=== PATIENT | male | born 1940 | race Caucasian/White ===

== ENCOUNTER 2016-06-23 09:04 | Outpatient (CLI) | payer MEDICARE ==
[~2016-06-23] VITALS: Ht 167.6 cm; Wt 59.1 kg
[~2016-06-23 09:04] MED LIST: ALBU18HF2 INH; AMLO10TA2 PO; ATOR40TA64 PO; BUDE10.2 PO; FINA5TAB42 PO; GUAI1TBM15 PO; LEVA1.2513 AEROSOL; LIDOCAINE 1% (10mg/ml) 2ml SDV INJ ONE; LISI-625 PO; LR 1,000 ML IV PRN; MONT10TA25 PO; PHEN355L3 PO; TIOT18CA3 ORAL INH
[2016-06-23 09:24] VITALS: Ht 167.6 cm; Wt 59.1 kg
[2016-06-23 09:26] VITALS: BP 125/59; PULSE 73; RESP 15; TEMP 98.2; O2SAT 95
[2016-06-23] MEDS ORDERED: NEOMYCIN/POLYM/BACITR OINT PACKET TOP ONE (09:32)
[2016-06-23] MEDS ORDERED: ISOSULFAN BLUE 5ml INJECTION SQ ONE (09:32)
[2016-06-23] MEDS ORDERED: BUPIVACAINE 0.25%/EPI 1:200,000 30ml SDV INJ ONE ×2 (09:32→14:06)
--- NOTE | 2016-06-23 11:46 | ANESPREOP ---
Anesthesia Record Date and Time DATE: 06/23/16 TIME: 11:43 Proposed Surgical Procedure wide local excision of melanoma upper back NPO since: 2329 Allergies: Coded Allergies: No Known Allergies (Unverified , 06/23/16) Ht/Wt/BMI Height: 5 ' 6.00 " Weight: 59.100 kg BMI: 21.0 kg/m2 Vital Signs Date Time Temp Pulse Resp B/P Pulse Ox O2 Delivery O2 Flow Rate FiO2 06/23/16 09:26 98.2 73 15 125/59 95 Room Air Medications Inpatient Medications Current Medications Medications (Trade) Dose Ordered Sig/Cale Start Time Stop Time Status Last Admin Dose Admin Lactated Ringer's (Lactated Ringers) 1,000 ml @ 50 mls/hr Q20H PRN 06/23/16 07:00 06/23/16 10:05 50 MLS/HR Albuterol Sulfate (Ventolin HFA 90 mcg/actuation) 18 Gm Hfa.aer.ad, 2 PUFF INH TID, (Reported) Last Taken: on 06/22/16 1900 Amlodipine Besylate (Amlodipine Besylate) 10 Mg Tablet, 10 MG PO HS, (Reported) Last Taken: on 06/22/161999 Atorvastatin Calcium (Atorvastatin Calcium) 40 Mg Tablet, 40 MG PO HS, (Reported) Last Taken: on 06/22/161999 Budesonide/Formoterol Fumarate (Symbicort 160- 4.5 Mcg Inhaler) 10.2 Gm Hfa.aer.ad, 2 PUFF PO BID, (Reported) Last Taken: on 06/23/16 0800 Finasteride (Finasteride) 5 Mg Tablet, 5 MG PO HS, (Reported) Last Taken: on 06/22/161999 Guaifenesin/Dextromethorphan (Mucinex Dm ER 1, 200-60 mg Tab) 1 Each Tbmp.12hr, 1 TAB PO BID, (Reported) Last Taken: on 06/22/161999 Levalbuterol HCl (Levalbuterol HCl) 1.25 Mg/3 Ml Vial.neb, 1 DOSE AEROSOL TID, (Reported) Last Taken: on 06/23/16 0800 Lisinopril (Lisinopril) 5 Mg Tablet, 5 MG PO DAILY, (Reported) Last Taken: on 06/22/161999 Montelukast Sodium (Montelukast Sodium) 10 Mg Tablet, 10 MG PO HS, (Reported) Last Taken: on 06/22/16 2000 Phenylephrine/Dm/Acetaminop/GG (Daytime Severe Cold-Flu Liquid) 355 Ml Liquid, 30 ML PO Q4H PRN for PRN ORDERS, (Reported) Last Taken: on 06/22/16 1400 Tiotropium [place] (Spiriva) 1 Cap Inhaler, 1 CAP ORAL INH DAILY, (Reported) Last Taken: on 06/23/16 0800 Currently on Beta Cristino: No Medical/Surgical History Anesthesia PMH: Reports: *Dyspnea (METS < 4), *Hypertension (TAKES MEDS), Arthritis (right thumb), Asthma, COPD (SEVERE PER H&P, O2 at home per NC), Cancer (MELANOMA UPPER BACK) Smoking Status: Former smoker (quit 10 years ago) # of Packs per Day: 1.5 # of Years: 40 Use Chewing Tobacco?: No Second Hand Exposure: No Substance Use Type: does not use Alcohol Intake: none Past Surgical History Orthopedic Surgeries: Yes - KNEE SCOPE Abdominal Surgeries: Yes - HERNIA with SM BOWEL RESECTION Genitourinary Surgeries: Cardiac Surgeries: Yes - HEART CATH X2 Endocrine Surgeries: Reproductive Surgeries: Neurological Surgeries: Ear Surgeries: Nose Surgeries: Throat Surgeries: Other Surgeries: Yes - RT. LOWER LOBECTOMY,SKIN CA REMOVED,OU CATARACT EXTRACTION Anesthesia Adverse Reactions: FOUND none Family Hx of Anesthesia Advers: none Hx of Motion Sickness: No Pertinent Findings EKG Ectopy: PVC Physical Exam Respiratory: Decreased breath sounds L, Decreased breath sounds R, Lungs clear Cardiovascular: FOUND Regular rate, rhythm Airway Assessment Mallampati Score: II TMD: 3 Fingerbreadths Teeth: Upper Dentures (glued in, may be very difficult to remove stated by patient. Explained risk if not removed), Lower Dentures Overall Assessment: No Airway Concerns ASA: 3 Plan Anesthesia Plan: TIVA, LMA, GETA (possible post op ventilation) Discussion Discussed risks/options/alternatives of anesthesia and questions answered. Patient consents. Nursing pain assessment noted. Attestation Statement Prior to the delivery of any anesthetic medication, I examined the patient, developed the plan, obtained the patient's consent and discussed the risk and benefits of the procedure with the patient/guardian. GIORGIO ALVAREZ CRNA Jun 23, 2016 11:46
[2016-06-23] MEDS ORDERED: CEFAZOLIN 1 GRAM INJECTION IV ONE (12:30)
--- NOTE | 2016-06-23 12:43 | DI ---
Indication: The purpose of this study is to localize the sentinel lymph node(s) for purposes of surgical planning. Procedure:NM LYMPHOSCINTIGRAPHY LYMPHOSCINTIGRAPHY: Technique: After discussing the details of the procedure, including the risks, the patient wished to proceed. Informed consent was obtained. A preprocedural pause was performed to confirm the correct patient and procedure. Approximately 0. 25 mCi of Tc-99m sulfur colloid was injected intradermally in four perilesional locations around the lesion located in the right upper back. A total of approximately 1 mCi of Tc-99m sulfur colloid was injected. Anterior planar images were subsequently obtained. Findings: The 4 intradermal injection sites are visualized as intense focal uptake in the right upper back region. There is an area of intense focal uptake located in the right axilla, consistent with a right axillary sentinel node. There is also an area of intense focal uptake on the left side of the neck, near the approximate area of C7. This is most likely a left cervical chain Sentinal Node. Impression: 1. Right axillary Sentinal Node. 2. Mora node in the inferior aspect of the left neck, may be a lower left posterior triangle cervical chain lymph node or left supraclavicular lymph node. Dejon Mcneal RPA/JENY performed this under my personal supervision. .
[2016-06-23] MEDS ORDERED: MIDAZOLAM 2mg/2ml INJECTION IV ONE (13:05)
[2016-06-23] MEDS ORDERED: FENTANYL 100mcg/2ml INJECTION IV ONE ×3 (13:20→14:19)
[2016-06-23] MEDS ORDERED: KETAMINE 500mg/10ml INJECTION IV ONE (13:53)
[2016-06-23 14:48] VITALS: BP 123/59; PULSE 75; RESP 18; TEMP 97.9; O2SAT 99
[2016-06-23] MEDS ORDERED: HYDR-4246 PO (14:54)
--- NOTE | 2016-06-23 14:58 | ANESPO ---
Post-Op Note Date 06/23/16 Time: 14:57 Status Pt Participated in Evaluation: Pt participated in person Vital Signs Date Time Temp Pulse Resp B/P Pulse Ox O2 Delivery O2 Flow Rate FiO2 06/23/16 09:26 98.2 73 15 125/59 95 Room Air Respiratory Function: Airway patent, Regular respirations Cardiovascular Function: Regular pulse Mental Status: Alert/oriented Pain Level Intensity: 1 Hydration: Taking po fluids Complications during Recovery None apparent Follow-Up Instructions Instructions Per Surgeon GIORGIO ALVAREZ CRNA Jun 23, 2016 14:58
[2016-06-23 15:03] VITALS: BP 117/62; PULSE 69; RESP 15; O2SAT 99
[2016-06-23] MEDS ORDERED: HYDROCODONE/APAP 5 mg/325 mg TABLET PO PRN (15:15)
[2016-06-23 15:18] VITALS: BP 118/63; PULSE 67; RESP 17; O2SAT 100
[2016-06-23 15:34] VITALS: BP 120/64; PULSE 68; RESP 18; TEMP 97.1; O2SAT 100
--- NOTE | 2016-06-23 17:33 | OPNOTEF ---
DATE OF SERVICE 06/23/2016 SURGEON Bereket Gunderson MD INDUSTRIAL ENGINEER Julius Plunkett APRN PREOPERATIVE DIAGNOSIS Personal history for ulcerated/thick melanoma involving right posterior shoulder/scapular region. POSTOPERATIVE DIAGNOSIS Personal history for ulcerated/thick melanoma involving right posterior shoulder/scapular region. PROCEDURE Preoperative injection of isosulfan blue, right axillary sentinel lymph node biopsy, wide local excision of melanoma involving right posterior shoulder/scapular region with subsequent two-layer closure of 11-cm incision. ANESTHESIA IV sedation with local. BRIEF HISTORY/INDICATIONS Mr. Lopez is a 75-year-old gentleman who recently presented with a raised, somewhat erythematous-appearing nodular lesion involving the right posterior shoulder/scapular region. This lesion was ulcerated in nature. Lesion was excised in its entirety and submitted for pathologic evaluation and did return as that of a nodular melanoma that was 8 mm in thickness and was ulcerated in nature. As a result of the above indications it was recommended that he undergo sentinel lymph node biopsy with wide local excision of this newly discovered melanoma. Patient presents today to undergo this procedure. For completeness please refer to notes included in the patient's chart. PROCEDURE After informed consent was obtained the patient was brought to the operative suite and placed on the table in a somewhat sitting position. Formal timeout was then completed. The skin surrounding his original incision site within the right posterior shoulder/scapular region was prepped with alcohol. 0.25 mL of isosulfan blue was injected in a subdermal fashion circumferentially around the original incision site. Sterile dressing was placed overlying this area. The patient was then placed in a supine fashion with the head of the bed elevated as a result of his severe COPD. Navigator Neoprobe was then utilized and one could find increased radioactivity within the right axilla. Additionally, utilizing the Navigator Neoprobe one could also find an area of some increased radioactivity within the left infraclavicular region. This corresponded with his preoperative lymphoscintigraphy films. Following injection of the isotope one could see activity within the right axilla as well as within the left infraclavicular region. I elected not to attempt to perform a left infraclavicular lymph node biopsy and attention was focused to the right axilla. The right axilla was then prepped and draped in sterile fashion. 0.25% Marcaine with epinephrine was injected overlying the area of increased radioactivity within the right axilla. A 3-cm incision was then made overlying the area of analgesia. Dissection was carried down into the right axilla. Four lymph nodes that did contain increased radioactivity and were slightly "stained" with the isosulfan blue were identified and submitted as the sentinel nodes. The highest count utilizing the Navigator Neoprobe was around 300. Background activity was around 20. Following excision of these four lymph nodes a finger was placed within the right axilla and palpation was undertaken. No palpable adenopathy was noted with the right axilla. Right axilla was then closed in two layers. First, deep subcutaneous tissues were reapproximated by placing several interrupted sutures of 3-0 Vicryl. Skin itself was then closed in a running subcuticular fashion with 4-0 Monocryl. Dermabond was then applied. The patient was then placed in a right lateral decubitus position for he had a frozen left shoulder and we could not place him in a left lateral decubitus position. The area of concern on the right posterior shoulder/scapular region was then prepped and draped in sterile fashion. A marking ruler was then utilized 2 cm were marked out circumferentially around his original incision site. This resulted in an elliptical incision that was about 11 cm in length and about 4.5 cm in width. This area was injected circumferentially with 0.25% Marcaine with epinephrine. An elliptical incision was then made overlying the area of analgesia. Dissection was carried down to underlying fascia. Subcutaneous tissue was then excised off of the fascia. The area of concern was excised in its entirety down to the underlying fascia. A marking suture was then placed along the medial aspect of the ellipse of skin for pathologic orientation. Edges of the incision were then undermined to facilitate closure. A small Yusuf drain was then placed and the subcutaneous tissues were reapproximated in a running fashion with 3-0 Vicryl. Skin itself was then closed in a running fashion with 3-0 Prolene. The patient tolerated the procedure without difficulty and was sent back to preop area in stable condition. Additionally, it should be noted that the pathologist did return a call to the operative suite stating that fortunately the sentinel lymph nodes were negative in nature with no evidence for metastatic disease. Lastly, it should be noted that Julius Plunkett APRN, was present throughout the entire case and played a pivotal role in providing assistance and exposure during the course of the procedure. ISMAEL
== END 2016-06-23 15:41 | disposition home or self-care (01) ==
LOC: IMA 09:04
PROVIDERS: ATTEND Surgery
DX: C43.59 Malignant melanoma of other part of trunk (principal); C77.3 Secondary and unspecified malignant neoplasm of axilla and upper limb lymph nodes
CPT/HCPCS: 11606; 13101; 13102; 38525; 38900; 78195; 88305; 88307; 88331; 88341; 88342; A9270; A9541; J0690; J2250; J3010; Q9968

== ENCOUNTER → 2016-07-21 | Outpatient (CLI) | payer MEDICARE ==
[~2016-07-21] MED LIST changes: +GADOBUTROL 10mMol/10ml INJECTION IV ONE; +HYDR-4246 PO; -LIDOCAINE 1% (10mg/ml) 2ml SDV INJ ONE; -LR 1,000 ML IV PRN; +SALINE FLUSH 10ml SYRINGE ONE
--- NOTE | 2016-07-21 10:55 | DI ---
Indication: ITS.REASON: C43.9 Malignant melanoma of skin, unspecified PROCEDURE: MRI BRAIN W/WO CONTRAST: Encounter: Initial Comparisons: None Technique: Multiplanar, multisequence, MR imaging of the head with and without contrast was acquired. Contrast: 5 mL of Gadavist FINDINGS: Moderate atrophy. The ventricles are of normal size, shape, and contour for the patient's age. The brain stem, cerebellum, and cerebral hemispheres have a normal morphologic appearance as well as MR signal intensity on all pulse sequences. Following intravenous administration of contrast, no areas of abnormal enhancement are evident. There are no areas of restricted diffusion to suggest an acute infarct. There is no evidence of an intracranial mass lesion, intracranial hemorrhage, or hydrocephalus. The visualized portions of the orbits, calvarium, paranasal sinuses, and skull base demonstrate no significant abnormality. IMPRESSION: Unremarkable MRI of the head for the patient's age with and without contrast. No evidence of intracranial metastatic disease. .
== END ==
LOC: IMA 09:24
PROVIDERS: ATTEND Internal Medicine Hematology & Oncology
DX: C43.9 Malignant melanoma of skin, unspecified (principal)
CPT/HCPCS: 70553; A9585